=== PATIENT | male | born 1955 | race Caucasian/White ===

== ENCOUNTER → 2019-04-28 21:03 | Outpatient (ROUT) | payer MEDICARE, SELFPAY | PROVIDERS: Visit Provider Internal Medicine | DX: C22.4 Other sarcomas of liver (principal) ==

== ENCOUNTER 2019-05-01 09:43 | Emergency (ER) | payer MEDICARE, SELFPAY ==
[2019-05-01 09:48] VITALS: BP 92/72; PULSE 95; RESP 14; TEMP 36.5; O2SAT 99; BMI 31.5
--- NOTE | 2019-05-01 10:23 | PC.NURSE ---
Family arrives. to s/w them
[2019-05-01 10:29] LABS: Alanine Aminotransferase 39 IU/L (21-72); Albumin 3.1 g/dL (3.5-5.0); Albumin Globulin Ratio 0.6 (1.0-2.8); Alkaline Phosphatase 173 U/L (38-126); Aspartate Aminotransferase 52 IU/L (17-59); BUN Creatinine Ratio 21.3 (6-22); Bilirubin Total 2.1 mg/dL (0.2-1.3); Blood Urea Nitrogen 32 mg/dL (9-20); Calcium 9.5 mg/dL (8.4-10.2); Carbon Dioxide 20 mmol/L (22-32); Chloride 111 mmol/L (98-107); Estimated Glomerular Filt Rate 47.3 mL/min (>60); Globulin 4.8 g/dL (1.7-4.1); Glucose 176 mg/dL (80-110); HEMOLYSIS 20 (0-50); Potassium 4.7 mmol/L (3.4-5.1); Sodium 140 mmol/L (137-145); Total Protein 7.9 g/dL (6.3-8.2)
[2019-05-01 10:51] LABS: Basophils Absolute Auto 0 /uL (0-100); Basophils Percent Auto 0.3 % (0-2); Eosinophils Absolute Auto 100 /uL (0-450); Eosinophils Percent Auto 3.7 % (2-4); Hematocrit 40.1 % (41-53); Hemoglobin 13.6 g/dL (13.5-17.5); Lymphocytes Absolute Auto 1000 /uL (1100-4500); Lymphocytes Percent Auto 27.1 % (25-40); Mean Corpuscular Hemoglobin 35.1 PG (26-34); Mean Corpuscular Volume 103.2 fL (80-100); Monocytes Absolute Auto 400 /uL (0-900); Monocytes Percent Auto 10.9 % (3-14); Neutrophils Absolute Auto 2200 /uL (1500-7000); Platelet Count 48 X10^3/uL (150-400); Red Blood Cell Count 3.88 X10^6/uL (4.5-5.9); White Blood Cell Count 3.7 X10^3/uL (4.5-11.0)
--- NOTE | 2019-05-01 11:13 | ED.WEAKNESS ---
HPI - Weakness General Chief complaint: Weakness Stated complaint: Weakness Time Seen by Provider: 05/01/19 09:47 Source: family and EMS Mode of arrival: EMS History of Present Illness HPI Narrative: Patient is a 63-year-old male from for [facility] presenting with weakness. His history of hepatic encephalopathy, HIV, diabetes, coronary artery disease. Apparently he has been declining over the last 2 weeks. He actually was just released from [facility] on 04/27/2019. Family's goal is to get him home to hospice which is patient's goal as well. However today he is more weak than normal. He is alert and oriented x3. He understands his he has a poor prognosis. He is agreeable and wanting hospice. Related Data Previous Rx's Medication Instructions Recorded mupirocin 0 jah TOPICAL TID #22 gm 09/21/17 Allergies Allergy/AdvReac Type Severity Reaction Status Date / Time codeine [CODEINE] Allergy Unknown Verified 05/01/19 10:21 diclofenac [DICLOFENAC] Allergy Unknown Verified 05/01/19 10:21 tramadol [TRAMADOL] Allergy Unknown Verified 05/01/19 10:21 Review of Systems Review of Systems ROS Unobtainable: All systems reviewed & are unremarkable except as noted in HPI and below Constitutional Denies chills, Denies fever(s), Reports lethargy and Reports weakness Eyes Denies change in vision, Denies eye discharge, Denies irritation and Denies loss of vision ENT Ears, Nose, Mouth, and Throat: Denies change in voice, Denies dizziness, Denies neck pain and Denies sore throat Cardiovascular Denies chest pain, Denies syncope, Denies irregular heart rhythm, Denies lightheadedness, Denies palpitations, Denies dyspnea, Denies dyspnea on exertion and Denies orthopnea Respiratory Denies cough, Denies dyspnea, Denies dyspnea on exertion and Denies wheezing Gastrointestinal Gastrointestinal: Reports as per HPI Genitourinary Denies hematuria, Denies flank pain, Denies urinary incontinence and Denies urinary urgency Musculoskeletal Denies neck pain Integumentary/Breasts Denies pruritus, Denies erythema, Denies rash and Denies wounds Neurologic Denies dizziness, Denies syncope, Denies loss of vision and Reports weakness Endocrine Denies palpitations Allergic/Immunologic Denies wheezing [facility] Medical History Coronary artery disease (Acute) Diabetes (Acute) End stage liver disease (Acute) HIV (human immunodeficiency virus infection) (Acute) Hepatic encephalopathy (Acute) Hepatitis-C (Acute) Social History Smoking Status: Former smoker Social History Smoking Status: Former smoker Exam Initial Vital Signs Initial Vital Signs: Vital Signs Temperature 97.7 F 05/01/19 09:48 Pulse Rate 95 H 05/01/19 09:48 Respiratory Rate 14 05/01/19 09:48 Blood Pressure 92/72 05/01/19 09:48 Pulse Oximetry 99 05/01/19 09:48 GENERAL: Week elderly male alert oriented x3 and in [no acute] distress. HEENT: Head atraumatic,EOMI, pupils reactive, face symmetric, CARDIOVASCULAR: Regular rate and rhythm without murmurs, rubs or gallops. RESPIRATORY: Breath sounds equal bilaterally, no wheezes rales or rhonchi. ABDOMEN: Soft, no distension fluid wave positive no guarding no rebound EXTREMITIES: Normal range of motion, no clubbing or edema. Neurovascularly intact NEUROLOGICAL: Alert and oriented x4.Normal gait and speech. Cranial nerves II through XII grossly intact. SKIN: Warm, dry, no laceration, no petechiae, no rashes or lesions. Course Orders Ordered: ED Orders 05/01/19 10:10 Ammonia (NH3) Stat Comprehensive Metabolic Panel Stat 05/01/19 10:40 Complete Blood Count AUTO DIFF Stat Vital Signs - 8 hr 05/01/19 09:48 05/01/19 11:30 05/01/19 12:30 Temperature 97.7 F Pulse Rate 95 H 96 H 98 H Respiratory Rate 14 14 14 Blood Pressure 92/72 Blood Pressure [Left Arm] 117/74 116/62 Pulse Oximetry 99 98 97 05/01/19 14:00 05/01/19 15:09 Temperature 97.8 F Pulse Rate 99 H 99 H Respiratory Rate 14 20 Blood Pressure Blood Pressure [Left Arm] 121/66 95/68 Pulse Oximetry 97 99 MDM - Weakness Lab Data Result diagrams: 05/01/19 10:40 05/01/19 10:10 Lab Results 05/01/19 05/01/19 05/01/19 Range/Units 10:10 10:10 10:40 WBC 3.7 L (4.5-11.0) X10^3/uL RBC 3.88 L (4.5-5.9) X10^6/uL Hgb 13.6 (13.5-17.5) g/dL Hct 40.1 L (41-53) % MCV 103.2 H (80-100) fL MCH 35.1 H (26-34) PG MCHC 34.0 (30-36) % RDW 16.0 H (11.6-14.8) % Plt Count 48 L (150-400) X10^3/uL Neut % (Auto) 58.0 (50-75) % Lymph % (Auto) 27.1 (25-40) % Burke % (Auto) 10.9 (3-14) % Eos % (Auto) 3.7 (2-4) % Baso % (Auto) 0.3 (0-2) % Neut # (Auto) 2200 (6803-9165) /uL Lymph # (Auto) 1000 L (4961-7482) /uL Burke # (Auto) 400 (0-900) /uL Eos # (Auto) 100 (0-450) /uL Baso # (Auto) 0 (0-100) /uL Platelet Estimate Decreased on smear RBC Morphology Not Reportable Anisocytosis 1+ H Macrocytosis 1+ H Sodium 140 (137-145) mmol/L Potassium 4.7 (3.4-5.1) mmol/L Chloride 111 H (98-107) mmol/L Carbon Dioxide 20 L (22-32) mmol/L BUN 32 H (9-20) mg/dL Creatinine 1.50 H (0.66-1.25) mg/dL Estimated GFR 47.3 L (>60) mL/min BUN/Creatinine Ratio 21.3 (6-22) Glucose 176 H (80-110) mg/dL Calcium 9.5 (8.4-10.2) mg/dL Total Bilirubin 2.1 H (0.2-1.3) mg/dL AST 52 (17-59) IU/L ALT 39 (21-72) IU/L Alkaline Phosphatase 173 H (38-126) U/L Ammonia 22.0 (9-30) umol/L Total Protein 7.9 (6.3-8.2) g/dL Albumin 3.1 L (3.5-5.0) g/dL Globulin 4.8 H (1.7-4.1) g/dL Albumin/Globulin Ratio 0.6 L (1.0-2.8) MDM Narrative Medical decision making narrative: Long discussion with family. Social work involved. Hospice at bedside. Patient will get hospice on Friday which is in 2 days. Family agrees to go back to [facility], and they agree to take him. Discharge Plan Departure Patient Disposition: SNF Clinical Impression: End stage liver disease Discharge Date/Time: 05/01/19 15:11 Interventions: ED Discharge Assessment Last Done: 05/01/19 15:10 Activity Restrictions/Additional Instructions: *You have been diagnosed with end-stage liver disease *What to do: Hospice has been arranged for you on Friday. *Continue to take medications as directed *Follow up with your primary care provider in 2-3 days *Return to ER if you should have any new, worsening or concerning symptoms
[2019-05-01 11:17] LABS: Add Manual Diff / Slide Review SLIDE REVIEW
[2019-05-01 11:18] LABS: Anisocytosis 1+; Macrocytosis 1+; Platelet Estimate Decreased on smear
[2019-05-01 11:30] VITALS: BP 117/74; PULSE 96; RESP 14; O2SAT 98
[2019-05-01 12:30] VITALS: BP 116/62; PULSE 98; RESP 14; O2SAT 97
--- NOTE | 2019-05-01 13:35 | CM.DANOTE ---
Patient is a 63 year old male who was admitted to the ER today 05/01/19 for weakness/confusion. Pt has MCR for insurance and his PCP is Dr. Clark Garcia. EMR was reviewed. Per ED MD, pt was admitted from [facility] and is requesting Comfort Care/Hospice and has updated POLST form with Comfort only measures. Pt does not have any medical needs that meet criteria for being admitted to [facility] Acute Care and MD requesting SW support with determining d/c plan for pt from the ED. SW met bedside with pt and his mother along with Dr. Baeza and pt confirms that his preference is to go home with Hospice care if possible. SW called [facility] and made new referral and requested Hospice Info Visit for today if possible to reduce pt's risk of social admit. Hospice SW available to do bedside ED info visit today around 1300 and pt's family should be bedside at that time. RAMIN called Aide at [facility] and confirmed that the pt had been admitted to their facility for SNF rehab from [facility] on 04/27/19 and has steadily declined in his ability to participate and [facility] MD had a long talk with pt and family towards decision of comfort care rather than rehab. Per Hospice SW, completed bedside Info Visit and pt and family signed Consents and DME can be delivered to pt's house on Friday with start date likely shortly after. RAMIN called [facility] Aide and updated and confirmed that they can accept pt back today under his Medicare Comfort benefit while Hospice at home being set up. RAMIN updated MD and RN and met bedside with pt and family and provided additional [facility] brochure and confirmed they are agreeable with plan of return to [facility] under Comfort Measures while waiting for DME to be delivered on Friday05/03/19 to pt's home. Plan: Patient to d/c back to [facility] under comfort measure while [facility] being set up for early this next week. NACHO Salomon
[2019-05-01 14:00] VITALS: BP 121/66; PULSE 99; RESP 14; O2SAT 97
[2019-05-01 15:09] VITALS: BP 95/68; PULSE 99; RESP 20; TEMP 36.6; O2SAT 99
== END 2019-05-01 15:11 ==
PROVIDERS: Emergency Provider Emergency Medicine
DX: K72.90 Hepatic failure, unspecified without coma (principal)
CPT/HCPCS: 36415; 36591; 80053; 82140; 85025; 99283

== ENCOUNTER 2019-12-24 15:01 | Inpatient (IN) | payer MEDICARE, MEDICAID, SELFPAY ==
[2019-12-24] VITALS (8 sets, daily range): BP systolic 89–125; BP diastolic 56–61; PULSE 111–132; RESP 18–25; TEMP 37.8–39.3; O2SAT 95–96; BMI 28.1; BMI 23.6
[2019-12-24] MEDS: SODIUM CHLORIDE 0.9% 1,000 ML 125 ML IV (15:28)
[2019-12-24 15:35] LABS: Hematocrit 39.2 % (41-53); Hemoglobin 13.7 g/dL (13.5-17.5); Mean Corpuscular HGB Conc 34.8 % (30-36); Mean Corpuscular Hemoglobin 34.5 PG (26-34); Platelet Count 67 X10^3/uL (150-400); Red Blood Cell Count 3.97 X10^6/uL (4.5-5.9); Red Cell Distribution Width 15.7 % (11.6-14.8)
--- NOTE | 2019-12-24 15:36 | ED.SEPSIS ---
HPI - Sepsis General Chief Complaint: Weakness Mode of arrival: EMS Source: patient and family Limitations: no limitations Evaluation Sepsis Screen: Possible Sepsis Risk Sepsis Infection Criteria Present: Suspected New Infection Narrative: Patient is a 64-year-old male. Arrived by EMS. Minimal history initially able to be obtained from the patient. Upon review of his medical record shows he was seen here at the end of last year. Reports that he has liver cancer. There was discussion at that time and that note that the patient was on hospice. Also notes the patient had HIV. Upon arrival patient states that he was feeling fine until 4-5 hours ago when he suddenly started to not feel well. He denies any pain. He stated that he was on hospice until about 1/2 ago. He also stated that he was on a transplant list. He knew where he was however did not know the year. Did not know his primary doctor. Did not know who his liver doctor was. Review of Systems Review of Systems Narrative: Somewhat limited given the patient's medical condition Constitutional Constitutional: Reports fatigue and Reports fever(s) Cardiovascular Cardiovascular: Denies chest pain and Denies dyspnea Respiratory Respiratory: Denies dyspnea Gastrointestinal Gastrointestinal: Denies abdominal pain and Denies vomiting Integumentary/Breasts Skin/Breast: Denies rash Neurologic Comments: Altered mental status Endocrine Endocrine: Reports fatigue Hematologic/Lymphatic Hematologic/Lymphatic: Denies easy bleeding and Denies easy bruising Patient History Medical History Coronary artery disease (Acute) Diabetes (Acute) End stage liver disease (Acute) Hepatic encephalopathy (Acute) Hepatitis-C (Acute) HIV (human immunodeficiency virus infection) (Acute) Social History Smoking Status: Former smoker Smoking Status: Former smoker alcohol intake frequency: holidays/special occasions only Substance Use Type: does not use Exam Initial Vital Signs Initial Vital Signs: Vital Signs Temperature 102.7 F H 12/24/19 15:13 Pulse Rate 132 H 12/24/19 15:13 Respiratory Rate 24 12/24/19 15:13 Blood Pressure 125/61 12/24/19 15:13 Pulse Oximetry 96 12/24/19 15:13 Const General: well groomed and ill appearing Limitations: altered mental status HENMT Head: normal to inspection and normocephalic Eyes Sclera: scleral abnormality bilaterally (Icterus) Resp Effort & Inspection: tachypneic Auscultation: clear to auscultation bilaterally Cardio Rate: tachycardic Rhythm: regular rhythm Pulses: radial pulses present GI Inspection: non-distended Palpation: soft, No firm and No tender Skin General: jaundice Neuro General: moves all extremities Cognition: abnormal cognition Extrem General: capillary refill normal Psych Appearance: grossly normal Scores GCS Maggy coma scale eye opening: To sound Maggy coma scale verbal response: Confused Grambling coma scale motor response: Obey commands Maggy coma scale total score: 13 Course Orders Ordered: ED Orders 12/24/19 15:04 Urinalysis and Microscopic Stat 12/24/19 15:05 Urine Culture Stat 12/24/19 15:19 Acetaminophen Stat Ammonia (NH3) Stat Basic Metabolic Panel Stat Complete Blood Count AUTO DIFF Stat Ethanol (ETOH) Stat Hepatic (Liver) Panel Stat Lactate (Lactic Acid) Stat Lipase Stat Partial Thromboplastin Time Stat Pathologist Review (for CBC) Stat Procalcitonin Stat Prothrombin Time INR Stat 12/24/19 15:28 Blood Culture Stat 12/24/19 15:41 XR chest 1V Stat 12/24/19 15:44 Consult to [facility] [place] Stat 12/24/19 16:34 Influenza A & B (PCR) Stat Sodium Chloride (Normal Saline 0.9%) 2,517.45 mls @ 839.15 mls/hr 30 ml/kg infuse over 3 hr (2517.45 ml) IV NOW ONE Stop: 12/24/19 18:36 Last Admin: 12/24/19 15:53 Dose: 839.15 mls/hr Documented by: YADI Vancomycin HCl/Dextrose (Vancomycin) 2,000 mg in 400 mls @ 200 mls/hr IV NOW ONE Stop: 12/24/19 17:42 Last Admin: 12/24/19 15:49 Dose: 200 mls/hr Documented by: YADI Levofloxacin (Levaquin) 750 mg in 150 mls @ 100 mls/hr IV NOW ONE Stop: 12/24/19 17:12 Last Admin: 12/24/19 15:58 Dose: 100 mls/hr Documented by: YADI Discontinued Medications Sodium Chloride (Normal Saline 0.9%) 1,000 mls @ 125 mls/hr IV CONT JAY Last Infusion: 12/24/19 16:09 Dose: 0 mls/hr Documented by: Infusion: 12/24/19 15:53 Dose: 840 mls/hr Documented by: Admin: 12/24/19 15:28 Dose: 125 mls/hr Documented by: YADI Cefepime HCl 2 gm/ Sodium (Chloride) 100 mls @ 200 mls/hr IV NOW ONE Stop: 12/24/19 15:44 Last Admin: 12/24/19 16:09 Dose: 200 mls/hr Documented by: YADI Vital Signs Vital signs: Vital Signs - 8 hr 12/24/19 15:13 Temperature 102.7 F H Pulse Rate 132 H Respiratory Rate 24 Blood Pressure 125/61 Pulse Oximetry 96 MDM - Sepsis Lab Data Attestation: I reviewed the patient's lab results. Result diagrams: 12/24/19 15:19 12/24/19 15:19 Labs: Lab Results 12/24/19 12/24/19 12/24/19 Range/Units 15:19 15:19 15:19 WBC 1.8 L* (4.5-11.0) X10^3/uL RBC 3.97 L (4.5-5.9) X10^6/uL Hgb 13.7 (13.5-17.5) g/dL Hct 39.2 L (41-53) % MCV 99.0 (80-100) fL MCH 34.5 H (26-34) PG MCHC 34.8 (30-36) % RDW 15.7 H (11.6-14.8) % Plt Count 67 L (150-400) X10^3/uL Neut % (Auto) Not Reportable Lymph % (Auto) Not Reportable Perkins % (Auto) Not Reportable Eos % (Auto) Not Reportable Baso % (Auto) Not Reportable Lymph # (Auto) Not Reportable Perkins # (Auto) Not Reportable Baso # (Auto) Not Reportable Total Counted 50 Seg Neutrophils % 78.0 H (38-70) % Band Neutrophils % 10.0 H (3-7) % Lymphocytes % (Manual) 8.0 L (25-45) % Monocytes % (Manual) 4.0 (2-11) % Neutrophils # (Manual) 1584 L (8225-1480) /uL Platelet Estimate Decreased on smear RBC Morphology See below Macrocytosis 1+ H Tear Drop Cells 1+ H PT 17.1 H (10.1-12.7) SECONDS INR 1.5 H (0.9-1.3) APTT 32 (26.4-36.2) SECONDS Sodium (137-145) mmol/L Potassium (3.4-5.1) mmol/L Chloride (98-107) mmol/L Carbon Dioxide (22-32) mmol/L BUN (9-20) mg/dL Creatinine (0.66-1.25) mg/dL Estimated GFR (>60) mL/min BUN/Creatinine Ratio (6-22) Glucose (80-110) mg/dL Lactate (0.7-2.1) mmol/L Calcium (8.4-10.2) mg/dL Total Bilirubin (0.2-1.3) mg/dL Conjugated Bilirubin (0.0-0.3) md/dL Unconjugated Bilirubin (0.0-1.1) mg/dL AST (17-59) IU/L ALT (<50) IU/L Alkaline Phosphatase (38-126) U/L Ammonia (9-30) umol/L Total Protein (6.3-8.2) g/dL Albumin (3.5-5.0) g/dL Globulin (1.7-4.1) g/dL Albumin/Globulin Ratio (1.0-2.8) Lipase (23-300) U/L Procalcitonin 0.30 (<0.5) ng/mL Acetaminophen (10-30) ug/mL Ethyl Alcohol ( - 10) mg/dL 12/24/19 12/24/19 12/24/19 Range/Units 15:19 15:19 15:19 WBC (4.5-11.0) X10^3/uL RBC (4.5-5.9) X10^6/uL Hgb (13.5-17.5) g/dL Hct (41-53) % MCV (80-100) fL MCH (26-34) PG MCHC (30-36) % RDW (11.6-14.8) % Plt Count (150-400) X10^3/uL Neut % (Auto) Lymph % (Auto) Perkins % (Auto) Eos % (Auto) Baso % (Auto) Lymph # (Auto) Perkins # (Auto) Baso # (Auto) Total Counted Seg Neutrophils % (38-70) % Band Neutrophils % (3-7) % Lymphocytes % (Manual) (25-45) % Monocytes % (Manual) (2-11) % Neutrophils # (Manual) (5996-1260) /uL Platelet Estimate RBC Morphology Macrocytosis Tear Drop Cells PT (10.1-12.7) SECONDS INR (0.9-1.3) APTT (26.4-36.2) SECONDS Sodium 132 L (137-145) mmol/L Potassium 4.8 (3.4-5.1) mmol/L Chloride 98 (98-107) mmol/L Carbon Dioxide 21 L (22-32) mmol/L BUN 35 H (9-20) mg/dL Creatinine 1.40 H (0.66-1.25) mg/dL Estimated GFR 51.0 L (>60) mL/min BUN/Creatinine Ratio 25.0 H (6-22) Glucose 141 H (80-110) mg/dL Lactate 5.6 H* (0.7-2.1) mmol/L Calcium 9.6 (8.4-10.2) mg/dL Total Bilirubin 4.1 H (0.2-1.3) mg/dL Conjugated Bilirubin 0.2 (0.0-0.3) md/dL Unconjugated Bilirubin 2.8 H (0.0-1.1) mg/dL AST 150 H (17-59) IU/L ALT 61 H (<50) IU/L Alkaline Phosphatase 276 H (38-126) U/L Ammonia 19 (9-30) umol/L Total Protein 9.4 H (6.3-8.2) g/dL Albumin 3.2 L (3.5-5.0) g/dL Globulin 6.2 H (1.7-4.1) g/dL Albumin/Globulin Ratio 0.5 L (1.0-2.8) Lipase 337 H (23-300) U/L Procalcitonin (<0.5) ng/mL Acetaminophen < 10 L (10-30) ug/mL Ethyl Alcohol < 10 ( - 10) mg/dL Imaging Data Chest x-ray: Radiologist's Impression: [address] [address] XRay Report Signed Patient: Farheen Sebastian#: [id number] : 5Acct:[id number] Age/Sex: 64 / MDate of Service: 12/24/19 Loc: ED Accession Number: [id number] Procedure: XR chest 1V Ordering Provider: Cody Siddiqui D.O. PROCEDURE: XR CHEST 1V INDICATIONS: Sepsis workup TECHNIQUE: One view of the chest was acquired. COMPARISON: [facility], , CHEST 1VW (PORTABLE), 09/06/2014, 6:04. FINDINGS: Surgical changes and devices: None. Lungs and pleura: Minimal appearance of increased vascularity is noted. No pleural effusions or pneumothorax. Mediastinum: Mediastinal contours appear normal. Heart size is normal. Bones and chest wall: No suspicious bony lesions. Overlying soft tissues appear unremarkable. IMPRESSION: Minimal increased vascularity suggestive of edema. Dictated by: Lucrecia Duff M.D. on 12/24/2019 at 16:10 Approved by: Lucrecia Duff M.D. on 12/24/2019 at 16:13 ECG Data Attestation: I personally reviewed and interpreted this ECG as follows: Prior ECG tracings: not available for review Interpretation: Sinus tachycardia Ventricular rate 128 QRS 140 milliseconds Normal axis No ST T wave changes MDM Narrative Medical decision making narrative: Initially arrived altered. Had minimal information other than a prior note from June of last year. Somewhat confusing as to whether not the patient was actually on hospice or not. Social work was involved. They were able to talk with the patient's mother and sister who stated that several weeks ago the patient was taken off hospice because he was ?doing so well ?a still unsure as to whether not he is actually on a liver transplant list. Patient arrived febrile, tachycardic, tachypneic, has an increase lactate, has a low white blood cell count. Unsure exactly the source of the sepsis however was given broad-spectrum antibiotics. After fluids patient did seem to improve somewhat mental status martinez. He then became alert and oriented. He was able to confirm that he was having no symptoms except that he just did not feel very well. He did confirm that he was a DNR however was okay with antibiotics. Patient was never hypotensive. Blood cultures obtained. Urine culture obtained. Chest x-ray shows no signs of pneumonia. Did discuss the case with Dr. Duran who will accept the patient. I did discuss this with the patient who expressed understanding and agreement. Discharge Plan Departure Patient Disposition: Admitted As Inpatient Clinical Impression: End stage liver disease Sepsis Qualifiers: Sepsis type: sepsis due to unspecified organism Sepsis acute organ dysfunction status: unspecified Qualified Code(s): A41.9 - Sepsis, unspecified organism Altered mental status Qualifiers: Altered mental status type: unspecified Qualified Code(s): R41.82 - Altered mental status, unspecified HIV (human immunodeficiency virus infection) Qualifiers: HIV symptom status: unspecified Qualified Code(s): B20 - Human immunodeficiency virus [HIV] disease
[2019-12-24 15:37] LABS: Add Manual Diff / Slide Review YES; White Blood Cell Count 1.8 X10^3/uL (4.5-11.0)
[2019-12-24 15:38] LABS: INR 1.5 (0.9-1.3); Prothrombin Time 17.1 SECONDS (10.1-12.7)
[2019-12-24 15:41] LABS: PTT Partial Thromboplastin Tim 32 SECONDS (26.4-36.2)
--- NOTE | 2019-12-24 15:41 | DI.RAD.S_ITS ---
PROCEDURE: XR CHEST 1V INDICATIONS: Sepsis workup TECHNIQUE: One view of the chest was acquired. COMPARISON: [facility], , CHEST 1VW (PORTABLE), 09/06/2014, 6:04. FINDINGS: Surgical changes and devices: None. Lungs and pleura: Minimal appearance of increased vascularity is noted. No pleural effusions or pneumothorax. Mediastinum: Mediastinal contours appear normal. Heart size is normal. Bones and chest wall: No suspicious bony lesions. Overlying soft tissues appear unremarkable. IMPRESSION: Minimal increased vascularity suggestive of edema. Dictated by: Lucrecia Duff M.D. on 12/24/2019 at 16:10 Approved by: Lucrecia Duff M.D. on 12/24/2019 at 16:13
[2019-12-24 15:44] LABS: Ammonia (NH3) 19 umol/L (9-30)
[2019-12-24 15:47] LABS: Acetaminophen < 10 ug/mL (10-30); Alanine Aminotransferase 61 IU/L (<50); Albumin 3.2 g/dL (3.5-5.0); Albumin Globulin Ratio 0.5 (1.0-2.8); Alkaline Phosphatase 276 U/L (38-126); Aspartate Aminotransferase 150 IU/L (17-59); Bilirubin Conjugated 0.2 md/dL (0.0-0.3); Bilirubin Total 4.1 mg/dL (0.2-1.3); Bilirubin Unconjugated 2.8 mg/dL (0.0-1.1); Blood Urea Nitrogen 35 mg/dL (9-20); Calcium 9.6 mg/dL (8.4-10.2); Carbon Dioxide 21 mmol/L (22-32); Chloride 98 mmol/L (98-107); Ethanol (ETOH) < 10 mg/dL; Globulin 6.2 g/dL (1.7-4.1); Glucose 141 mg/dL (80-110); HEMOLYSIS < 15 (0-50); Lipase 337 U/L (23-300); Potassium 4.8 mmol/L (3.4-5.1); Sodium 132 mmol/L (137-145); Total Protein 9.4 g/dL (6.3-8.2)
[2019-12-24] MEDS: VANCOMYCIN 2,000 MG/400 ML PIGGYBACK 200 MG IV (15:49)
[2019-12-24 15:51] LABS: Lactate (Lactic Acid) 5.6 mmol/L (0.7-2.1)
[2019-12-24] MEDS: SODIUM CHLORIDE 0.9% 2,517.45 ML 839.15 ML IV (15:53)
[2019-12-24] MEDS: levoFLOXacin 750 MG/150 ML PIGGYBACK 100 MG IV (15:58)
[2019-12-24 16:04] LABS: Neutrophils Absolute Manual 1584 /uL (3000-5900); Total Cells Counted 50
[2019-12-24 16:06] LABS: Macrocytosis 1+; Platelet Estimate Decreased on smear; Tear Drop Cells 1+
[2019-12-24] MEDS: CEFEPIME 2 GM in SODIUM CHLORIDE 0.9% 100 ML 200 ML IV (16:09)
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
[2019-12-24 16:58] LABS: Bacteria Urine None Seen; RBC Urine None Seen (0-5/HPF); WBC Urine None Seen (0-5/HPF)
[2019-12-24 16:59] LABS: Appearance Urine UA CLEAR; Bilirubin Urine UA NEGATIVE (NEGATIVE); Color Urine UA YELLOW; Glucose Urine UA NEGATIVE (Negative); Ketones Urine UA NEGATIVE (NEGATIVE); Leukocyte Esterase Urine UA NEGATIVE (NEGATIVE); Nitrite Urine UA NEGATIVE (Negative); Occult Blood Urine UA NEGATIVE (Negative); Protein Urine UA NEGATIVE (Negative); Specific Gravity Urine UA 1.015 (1.000-1.035); Urobilinogen Urine UA 0.2 E.U./dL (0.2)
--- NOTE | 2019-12-24 17:01 | PC.NURSE ---
Assumed care of pt. report from JUANCHO Lucas. pt resting in bed. AAOx3, states today around 1530 was at home--lives alone, started with feverish chills, nausea and some vomiting. Lungs clear, and SNT, last BM today loose, denies blood in stool, HR 118 ST, 2+ pulses, adequate cap refill, voiding in urinal and sample sent. Pt receiving 2nd liter NS at this time. goal is 2.5L NS. Cefepime infused. pt receiving Levaquin and Vanco at this time. PIV access x 2. Per pt he feels much more alert than on arrival. pt with h/o liver CA and sclera jaundiced. states he was on hospice months ago but took himself off and is not currently receiving CA treatment
[2019-12-24 17:07] LABS: Urine Comments Microscopic Normal
[2019-12-24 17:15] LABS: Influenza A - CEPHEID Flu A NEGATIVE (NEGATIVE); Influenza B - CEPHEID Flu B NEGATIVE (NEGATIVE)
[2019-12-24 17:25] LABS: Reflexed Lactate in 2 Hours Y
--- NOTE | 2019-12-24 18:30 | PC.NURSE ---
report given to Ant DAWKINS.
[2019-12-24] MEDS: LACTULOSE 20 GM/30 ML SOLUTION 30 GM PO (21:35)
--- NOTE | 2019-12-24 22:33 | PM.HP.1 ---
History of Present Illness History of Present Illness Date Patient Seen: 12/24/19 Time Patient Seen: 22:33 Chief complaint: late state liver CA, chills, tremers, weak Narrative: Patient is a 64-year-old male with complex past medical history. Patient is unable to give a clear account of his medical history and current medical record also lacks details. Patient reports PMH of CAD, DM 2T (not on insulin, off oral antiglcyemics x6 months), hepatitis C, hepatic encephalopathy, ESLD / cirrhosis, HIV Patient reports developing sudden onset of rigors. Symptom onset was sudden, hours prior to ED presentation. Associated symptoms include encephalopathy, generalized weakness, nausea and vomiting (x2 episodes). Patient denies recent travel or exposure to ill contacts. He is immunocompromised. Denies cough and symptoms of upper respiratory illness. Denies headache, chest pain, palpitations, dizziness, lightheadedness, abdominal pain, dysuria, or new rash. Prior to ED presentation patient has been feeling well. He was on hospice, but was taken of due to stable overall health status. At home patient is on lactulose, furosemide, and spironolactone. Patient has been following with multiple specialists in [facility] for his underlying illness; however, states that in the past several months he has been establishing himself with different providers and all of his records are in the process of being transferred to [facility]. Patient History Family & Social History Social History: household members family Prior Living Arrangements House Safety & Behavioral: Feels Safe in Current Yes Environment Been Physically Hurt or No Threatened By a Person Suicidal Ideation Description None Suicide Plan Description No Plan Tobacco & Substance use: Smoking Status Former smoker alcohol intake frequency holiday/special occasion Substance Use Type does not use Meds Home Medications and Allergies Home Medications Medication Instructions Recorded Confirmed Type fluconazole 100 mg PO DAILY 12/24/19 12/24/19 History furosemide 40 mg PO DAILY 12/24/19 12/24/19 History lactulose 45 ml PO TID 12/24/19 12/24/19 History spironolactone 100 mg PO DAILY 12/24/19 12/24/19 History Allergies Allergy/AdvReac Type Severity Reaction Status Date / Time codeine [CODEINE] Allergy Unknown Verified 12/24/19 15:16 diclofenac [DICLOFENAC] Allergy Unknown Verified 12/24/19 15:16 tramadol [TRAMADOL] Allergy Unknown Verified 12/24/19 15:16 Review of Systems Review of Systems ROS: Yes All systems reviewed with the patient and are negative except as otherwise documented Exam Vital Signs (past 8 hours): - 12/24/19 15:13 12/24/19 16:53 12/24/19 17:10 Temperature 102.7 F H 100.3 F H Pulse Rate 132 H 120 H 118 H Respiratory Rate 24 24 25 H Blood Pressure 125/61 Blood Pressure [Left Arm] 125/61 102/58 L Pulse Oximetry 96 95 95 12/24/19 18:29 12/24/19 18:45 12/24/19 18:53 Temperature 100.0 F H Pulse Rate 111 H 112 H Respiratory Rate 24 18 Blood Pressure 93/56 L Blood Pressure [Left Arm] 89/57 L Pulse Oximetry 95 96 96 12/24/19 19:20 Temperature Pulse Rate Respiratory Rate Blood Pressure 98/57 L Blood Pressure [Left Arm] Pulse Oximetry Oxygen Delivery Method Room Air Narrative Exam Narrative: Constitutional: NAD Neurologic: AOx3, no focal neurological deficits Head: NC, AT Eyes: PERRL, EOMI, mild scleral icterus Ears: external ears normal, no otorrhea Nose: external nose normal, no rhinorrhea or epistaxis Throat: dry MM, oropharynx w/o exudate Neck: no masses, lymphadenopathy, or JVD Chest / Respiratory: Equal chest rise, CTAB, on room air Heart / CV: S1S2, + murmur Abdomen / GI: Moderately distended, nontender, no guarding or rebound tenderness, + NS : no suprapubic tenderness, no CVA Peripheral / Vascular: warm to touch, DP and PT pulses palpable, no edema Musc: full ROM of upper and lower extremities, adequate muscle tone and bulk Skin: no ecchymosis or suspicious lesions, scabs on forearms noted Objective Labs Result Diagrams: 12/25/19 02:45 12/25/19 02:45 Labs: Laboratory Results - last 24 hr 12/24/19 12/24/19 12/24/19 15:19 15:19 15:19 WBC 1.8 L* RBC 3.97 L Hgb 13.7 Hct 39.2 L MCV 99.0 MCH 34.5 H MCHC 34.8 RDW 15.7 H Plt Count 67 L Neut % (Auto) Not Reportable Lymph % (Auto) Not Reportable [place] % (Auto) Not Reportable Eos % (Auto) Not Reportable Baso % (Auto) Not Reportable Lymph # (Auto) Not Reportable [place] # (Auto) Not Reportable Baso # (Auto) Not Reportable Total Counted 50 Seg Neutrophils % 78.0 H Band Neutrophils % 10.0 H Lymphocytes % (Manual) 8.0 L Monocytes % (Manual) 4.0 Neutrophils # (Manual) 1584 L Platelet Estimate Decreased on smear RBC Morphology See below Macrocytosis 1+ H Tear Drop Cells 1+ H PT 17.1 H INR 1.5 H APTT 32 Sodium Potassium Chloride Carbon Dioxide BUN Creatinine Estimated GFR BUN/Creatinine Ratio Glucose Lactate Calcium Total Bilirubin Conjugated Bilirubin Unconjugated Bilirubin AST ALT Alkaline Phosphatase Ammonia Total Protein Albumin Globulin Albumin/Globulin Ratio Lipase Procalcitonin 0.30 Urine Color Urine Appearance Urine pH Ur Specific [place] Urine Protein Urine Glucose (UA) Urine Ketones Urine Occult Blood Urine Nitrate Urine Bilirubin Urine Urobilinogen Ur Leukocyte Esterase Urine RBC Urine WBC Urine Bacteria Ur Culture Indicated? Micro UA Comment Acetaminophen Ethyl Alcohol Influenza A (RT-PCR) Influenza B (RT-PCR) 12/24/19 12/24/19 12/24/19 15:19 15:19 15:19 WBC RBC Hgb Hct MCV MCH MCHC RDW Plt Count Neut % (Auto) Lymph % (Auto) [place] % (Auto) Eos % (Auto) Baso % (Auto) Lymph # (Auto) [place] # (Auto) Baso # (Auto) Total Counted Seg Neutrophils % Band Neutrophils % Lymphocytes % (Manual) Monocytes % (Manual) Neutrophils # (Manual) Platelet Estimate RBC Morphology Macrocytosis Tear Drop Cells PT INR APTT Sodium 132 L Potassium 4.8 Chloride 98 Carbon Dioxide 21 L BUN 35 H Creatinine 1.40 H Estimated GFR 51.0 L BUN/Creatinine Ratio 25.0 H Glucose 141 H Lactate 5.6 H* Calcium 9.6 Total Bilirubin 4.1 H Conjugated Bilirubin 0.2 Unconjugated Bilirubin 2.8 H AST 150 H ALT 61 H Alkaline Phosphatase 276 H Ammonia 19 Total Protein 9.4 H Albumin 3.2 L Globulin 6.2 H Albumin/Globulin Ratio 0.5 L Lipase 337 H Procalcitonin Urine Color Urine Appearance Urine pH Ur Specific [place] Urine Protein Urine Glucose (UA) Urine Ketones Urine Occult Blood Urine Nitrate Urine Bilirubin Urine Urobilinogen Ur Leukocyte Esterase Urine RBC Urine WBC Urine Bacteria Ur Culture Indicated? Micro UA Comment Acetaminophen < 10 L Ethyl Alcohol < 10 Influenza A (RT-PCR) Influenza B (RT-PCR) 12/24/19 12/24/19 12/24/19 16:31 16:34 18:16 WBC RBC Hgb Hct MCV MCH MCHC RDW Plt Count Neut % (Auto) Lymph % (Auto) [place] % (Auto) Eos % (Auto) Baso % (Auto) Lymph # (Auto) [place] # (Auto) Baso # (Auto) Total Counted Seg Neutrophils % Band Neutrophils % Lymphocytes % (Manual) Monocytes % (Manual) Neutrophils # (Manual) Platelet Estimate RBC Morphology Macrocytosis Tear Drop Cells PT INR APTT Sodium Potassium Chloride Carbon Dioxide BUN Creatinine Estimated GFR BUN/Creatinine Ratio Glucose Lactate 3.0 H Calcium Total Bilirubin Conjugated Bilirubin Unconjugated Bilirubin AST ALT Alkaline Phosphatase Ammonia Total Protein Albumin Globulin Albumin/Globulin Ratio Lipase Procalcitonin Urine Color Yellow Urine Appearance Clear Urine pH 5.0 Ur Specific [place] 1.015 Urine Protein Negative Urine Glucose (UA) Negative Urine Ketones Negative Urine Occult Blood Negative Urine Nitrate Negative Urine Bilirubin Negative Urine Urobilinogen 0.2 Ur Leukocyte Esterase Negative Urine RBC None seen Urine WBC None seen Urine Bacteria None seen Ur Culture Indicated? Culture not indicate Micro UA Comment Microscopic normal Acetaminophen Ethyl Alcohol Influenza A (RT-PCR) Flu a negative Influenza B (RT-PCR) Flu b negative Assessment & Plan Assessment & Plan narrative: Patient is being admitted under observation status out of concern for sepsis. Sepsis with acute organ dysfunction (encephalopathy), without septic shock, present on admission active - altered mental status, tachycardia, tachypnea, and elevated lactate; not hypotensive - if infection is present, source is not entirely clear SBP?? - blood cx pending - cxr not indicative of an infection - ua negative - flu a/b negative - check respiratory viral panel (negative) - PCT 0.3, repeat in am - in ED treated w/ vancomycin, levofloxacin, and cefepime continue levofloxacin - elevated lactate... infection vs hypovolemia / dehydration... continue trending lactate until normal Pancytopenia, chronic condition, present on admission, active - chronic in the setting of end-stage liver disease - more pronounced leukopenia, will monitor closely Acute metabolic encephalopathy, present on admission, active / resolved - resolved after IV hydration - ammonia level 18 - continue lactulose for prevention of hepatic encephalopathy, goal of 3 BMs daily CKD III, chronic condition, present on admission, active - Cr 1.4, appears to be at baseline, continue trending ESLD / Cirrhosis, chronic condition, present on admission, active - MELD Score of 23 - w/complications of pancytopenia, hepatic encephalopathy - continue lactulose, furosemide, and spironolactone - obtain health records from [facility] HIV, chronic condition, present on admission, active - not on any anti-retroviral therapy DNRHunter Bynum has a POLST form. States his daughter the designated surrogate decision maker. Home medications reviewed and reconciled accordingly VTE prophylaxis w/ SCDs only (no heparin, lovenox d/t thrombocytopenia) Quality VTE Deep Vein Thrombosis/Pulmonary Embolism Present on Admission: No
[2019-12-25] VITALS (10 sets, daily range): BP systolic 84–104; BP diastolic 50–67; PULSE 88–101; RESP 16–20; TEMP 36.3–37.1; O2SAT 95–99
[2019-12-25 00:49] LABS: Lactate (Lactic Acid) 2.6 mmol/L (0.7-2.1)
[2019-12-25 00:50] LABS: Alanine Aminotransferase 46 IU/L (<50); Albumin 2.4 g/dL (3.5-5.0); Albumin Globulin Ratio 0.5 (1.0-2.8); Alkaline Phosphatase 160 U/L (38-126); Aspartate Aminotransferase 109 IU/L (17-59); BUN Creatinine Ratio 25.7 (6-22); Bilirubin Total 3.1 mg/dL (0.2-1.3); Blood Urea Nitrogen 36 mg/dL (9-20); Calcium 8.5 mg/dL (8.4-10.2); Carbon Dioxide 22 mmol/L (22-32); Chloride 104 mmol/L (98-107); Glucose 188 mg/dL (80-110); HEMOLYSIS < 15 (0-50); Potassium 4.6 mmol/L (3.4-5.1); Sodium 133 mmol/L (137-145); Total Protein 7.4 g/dL (6.3-8.2)
[2019-12-25 01:07] LABS: Adenovirus Not Detected (Not Detect); Bordetella pertussis Not Detected (Not Detect); Chlamydophila pneumoniae Not Detected (Not Detect); Coronavirus 229E Not Detected (Not Detect); Coronavirus HKU1 Not Detected (Not Detect); Coronavirus NL 63 Not Detected (Not Detect); Coronavirus OC43 Not Detected (Not Detect); Human Metapneumovirus Not Detected (Not Detect); Human Rhinovirus/Enterovirus Not Detected (Not Detect); Influenza A Not Detected (Not Detect); Influenza B Not Detected (Not Detect); Mycoplasma pneumoniae Not Detected (Not Detect); Parainfluenza Virus 1 Not Detected (Not Detect); Parainfluenza Virus 2 Not Detected (Not Detect); Parainfluenza Virus 3 Not Detected (Not Detect); Parainfluenza Virus 4 Not Detected (Not Detect); Respiratory Syncytial Virus Not Detected (Not Detect)
[2019-12-25 02:35] LABS: Reflexed Lactate in 2 Hours Y
[2019-12-25 03:02] LABS: Lactate 2HR (Lactic Acid Rflx) 2.8 mmol/L (0.7-2.1)
[2019-12-25 03:19] LABS: Hematocrit 31.7 % (41-53); Mean Corpuscular HGB Conc 34.7 % (30-36); Mean Corpuscular Hemoglobin 34.5 PG (26-34); Mean Corpuscular Volume 99.3 fL (80-100); Platelet Count 43 X10^3/uL (150-400); Red Blood Cell Count 3.19 X10^6/uL (4.5-5.9); Red Cell Distribution Width 16.1 % (11.6-14.8); White Blood Cell Count 3.6 X10^3/uL (4.5-11.0)
[2019-12-25 03:22] LABS: Add Manual Diff / Slide Review YES
[2019-12-25 03:35] LABS: BUN Creatinine Ratio 25.7 (6-22); Blood Urea Nitrogen 36 mg/dL (9-20); Calcium 8.6 mg/dL (8.4-10.2); Carbon Dioxide 22 mmol/L (22-32); Chloride 104 mmol/L (98-107); Glucose 186 mg/dL (80-110); HEMOLYSIS < 15 (0-50); Potassium 4.7 mmol/L (3.4-5.1); Sodium 133 mmol/L (137-145)
[2019-12-25 03:54] LABS: Procalcitonin 12.17 ng/mL (<0.5)
[2019-12-25 06:46] LABS: Enterococcus species Not Detected (Not Detect); Listeria monocytogenes Not Detected (Not Detect); Methicillin-resistant gene Not Detected (Not Detect); Staphylococcus species Not Detected (Not Detect)
[2019-12-25 06:47] LABS: Acinetobacter baumannii Not Detected (Not Detect); Streptococcus agalactiae (Gr B Not Detected (Not Detect); Streptococcus pneumonia Not Detected (Not Detect); Streptococcus pyogenes (Gr A) Not Detected (Not Detect); Streptococcus species Not Detected (Not Detect)
[2019-12-25 06:49] LABS: Candida albicans Not Detected (Not Detect); Candida glabrata Not Detected (Not Detect); Candida krusei Not Detected (Not Detect); Candida parapsilosis Not Detected (Not Detect); Candida tropicalis Not Detected (Not Detect); E. coli Not Detected (Not Detect); Enterobacter cloacae complex Not Detected (Not Detect); Enterobacteriaceae species Detected (Not Detect); Haemophilus influenzae Not Detected (Not Detect); KPC (carbapenem-resist gene) Not Detected (Not Detect); Neisseria meningitidis Not Detected (Not Detect); Proteus species Not Detected (Not Detect); Pseudomonas aeruginosa Not Detected (Not Detect); Serratia marcescens Not Detected (Not Detect)
[2019-12-25 07:19] LABS: Neutrophils Absolute Manual 2808 /uL (3000-5900); Total Cells Counted 100
[2019-12-25 07:20] LABS: Platelet Estimate Decreased on smear
[2019-12-25] MEDS: MEROPENEM 1 GM/50 ML PIGGYBACK IV ×3 (08:28→22:56)
[2019-12-25] MEDS: FLUCONAZOLE 100 MG TABLET PO (08:29)
[2019-12-25] MEDS: SPIRONOLACTONE 50 MG TABLET 100 MG PO (08:29)
[2019-12-25] MEDS: FUROSEMIDE 40 MG TABLET PO (08:29)
[2019-12-25] MEDS: SODIUM CHLORIDE 0.9% FLUSH 10 ML IV ×2 (08:32→20:43)
--- NOTE | 2019-12-25 15:18 | CM.DANOTE ---
DCP Assessment: EMR reviewed: Patient is a 64 yr old male who was admitted to for Sepsis. Patients PCP is unknown but states he has one at [facility]. CM/RN met with patient and patients mother at the bedside and explained role. Patient was alert and oriented x3 during CM visit. Patient currently lives alone in a ground floor studio apartment . 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 patient and CM discussed SNF options and he determined he does not want to go to a SNF and would like HH if he needs assistance at home. CM/RN attempted to contact patients daughter Carla at [phone] at patients request and left her a message. Pending PT and OT evaluations to determine D/C needs. Patient would like [facility] and needs a face to face signed. I: Medicare and medicaid Plan: D/C home with [facility] and family support. need face to face signed. Clinicals faxed to [facility] to review. Cynthia Nieto RN Discharge Planning/Care Management CM Discharge Assessment Start: 12/25/19 15:15 Freq: Status: Active Protocol: Document 12/25/19 15:16 HS (Rec: 12/25/19 15:18 HS [id number]) Discharge Planning Assessment Assigned Claim Approver Cynthia Nieto Rn DPOA/Assigned Designee Name Virgilio Sebastian (mom) Contact Information [phone] Advance Directives? Yes History Provided By Patient,Family Member Has Patient been admitted in last 30 No days? Prior Living Arrangements House Household Members family Type of transporation used prior to Relies on Others admit Independent with ADL's Yes Is patient alert and oriented? Yes Caregiver for Another No DME Already Rented / Owned Bath Bench,Elevated Toilet Seat,FWW / Walker,Cane Patient/Family Preference Home with Home Health Comment Patients preferrence is [facility] Discharge Plan Home with Home Health Referrals Initiated Home Health If patient plan is home with home health No: need face to face signed : Has signed face to face form been completed? Medicare Choice List Provided Yes SNF/HH Preference [facility] Contact Name/ Whiteboard Updated in Patient Room with Yes name and ext. # of Claim Approver Review Status In Process Next Review Type Continued Stay Review
--- NOTE | 2019-12-25 18:45 | PM.PN.1 ---
Subjective Subjective Date Patient Seen: 12/25/19 Interval history: Patient is definitely feeling stronger, taking p.o. well, fevers resolving. Exam Vital Signs (past 8 hours): - 12/25/19 11:18 12/25/19 16:44 12/25/19 17:27 Temperature 97.6 F 97.4 F L Pulse Rate 88 95 H Respiratory Rate 16 16 Blood Pressure 100/62 103/67 Pulse Oximetry 99 97 96 Oxygen Delivery Method Room Air Oxygen Flow Rate 0 Narrative Exam Narrative: General: Alert and in no acute distress Lungs: Clear to auscultation Heart: Regular rhythm Abdomen: Soft nontender Extremities: No edema Neurological: Not confused, nonfocal Objective Labs Result Diagrams: 12/25/19 02:45 12/25/19 02:45 Labs: Laboratory Results - last 24 hr 12/24/19 12/24/19 12/25/19 15:28 16:34 00:30 WBC RBC Hgb Hct MCV MCH MCHC RDW Plt Count Neut % (Auto) Lymph % (Auto) [place] % (Auto) Eos % (Auto) Baso % (Auto) Lymph # (Auto) [place] # (Auto) Baso # (Auto) Total Counted Seg Neutrophils % Band Neutrophils % Lymphocytes % (Manual) Atypical Lymphs % Monocytes % (Manual) Neutrophils # (Manual) Platelet Estimate RBC Morphology Sodium 133 L Potassium 4.6 Chloride 104 Carbon Dioxide 22 BUN 36 H Creatinine 1.40 H Estimated GFR 51.0 L BUN/Creatinine Ratio 25.7 H Glucose 188 H Lactate Calcium 8.5 Total Bilirubin 3.1 H AST 109 H ALT 46 Alkaline Phosphatase 160 H Total Protein 7.4 Albumin 2.4 L Globulin 5.0 H Albumin/Globulin Ratio 0.5 L Procalcitonin A. baumannii (PCR) Not detected Chlamy pneumoniae PCR Not detected Adenovirus (PCR) Not detected B.parapertussis DNA PCR Not detected Rosie albicans (PCR) Not detected C. glabrata (PCR) Not detected C. krusei (PCR) Not detected C. parapsilosis (PCR) Not detected C. tropicalis (PCR) Not detected Coronavirus OC43 (PCR) Not detected Coronavirus HKU1 (PCR) Not detected Coronavirus 229E (PCR) Not detected Coronavirus NL63 (PCR) Not detected Enterobacteriac sp PCR Detected H E. cloacae complex PCR Not detected Enterococcus sp PCR Not detected E. coli (PCR) Not detected H. influenzae (PCR) Not detected Human Metapneumovir PCR Not detected Influenza Type A (PCR) Not detected Influenza Type B (PCR) Not detected Klebsiella oxytoca PCR Not detected Klebsiella pneumoniae Not detected List. monocytogenes PCR Not detected M. pneumoniae (PCR) Not detected N. meningitidis (PCR) Not detected Parainfluenza 1 (PCR) Not detected Parainfluenza 2 (PCR) Not detected Parainfluenza 3 (PCR) Not detected Parainfluenza 4 (PCR) Not detected Proteus species (PCR) Not detected RSV (PCR) Not detected Entero/Rhino (PCR) Not detected Serratia marcescens PCR Not detected Staphylococcus sp PCR Not detected Staph aureus (PCR) Not detected mecA-Methicil Res Gene Not detected Streptococcus sp PCR Not detected Group A Strep (PCR) Not detected Strep agalactiae (PCR) Not detected Strep pneumoniae (PCR) Not detected P. aeruginosa (PCR) Not detected Anna/B-Vanco Res Genes Not Reportable KPC-Carbap Res Gene PCR Not detected 12/25/19 12/25/19 12/25/19 00:30 02:45 02:45 WBC 3.6 L D RBC 3.19 L Hgb 11.0 L Hct 31.7 L MCV 99.3 MCH 34.5 H MCHC 34.7 RDW 16.1 H Plt Count 43 L Neut % (Auto) Not Reportable Lymph % (Auto) Not Reportable [place] % (Auto) Not Reportable Eos % (Auto) Not Reportable Baso % (Auto) Not Reportable Lymph # (Auto) Not Reportable [place] # (Auto) Not Reportable Baso # (Auto) Not Reportable Total Counted 100 Seg Neutrophils % 76.0 H Band Neutrophils % 2.0 L Lymphocytes % (Manual) 15.0 L Atypical Lymphs % 2.0 H Monocytes % (Manual) 5.0 Neutrophils # (Manual) 2808 L Platelet Estimate Decreased on smear RBC Morphology Not Reportable Sodium Potassium Chloride Carbon Dioxide BUN Creatinine Estimated GFR BUN/Creatinine Ratio Glucose Lactate 2.6 H Calcium Total Bilirubin AST ALT Alkaline Phosphatase Total Protein Albumin Globulin Albumin/Globulin Ratio Procalcitonin 12.17 H A. baumannii (PCR) Chlamy pneumoniae PCR Adenovirus (PCR) B.parapertussis DNA PCR Rosie albicans (PCR) C. glabrata (PCR) C. krusei (PCR) C. parapsilosis (PCR) C. tropicalis (PCR) Coronavirus OC43 (PCR) Coronavirus HKU1 (PCR) Coronavirus 229E (PCR) Coronavirus NL63 (PCR) Enterobacteriac sp PCR E. cloacae complex PCR Enterococcus sp PCR E. coli (PCR) H. influenzae (PCR) Human Metapneumovir PCR Influenza Type A (PCR) Influenza Type B (PCR) Klebsiella oxytoca PCR Klebsiella pneumoniae List. monocytogenes PCR M. pneumoniae (PCR) N. meningitidis (PCR) Parainfluenza 1 (PCR) Parainfluenza 2 (PCR) Parainfluenza 3 (PCR) Parainfluenza 4 (PCR) Proteus species (PCR) RSV (PCR) Entero/Rhino (PCR) Serratia marcescens PCR Staphylococcus sp PCR Staph aureus (PCR) mecA-Methicil Res Gene Streptococcus sp PCR Group A Strep (PCR) Strep agalactiae (PCR) Strep pneumoniae (PCR) P. aeruginosa (PCR) Anna/B-Vanco Res Genes KPC-Carbap Res Gene PCR 12/25/19 12/25/19 02:45 02:45 WBC RBC Hgb Hct MCV MCH MCHC RDW Plt Count Neut % (Auto) Lymph % (Auto) [place] % (Auto) Eos % (Auto) Baso % (Auto) Lymph # (Auto) [place] # (Auto) Baso # (Auto) Total Counted Seg Neutrophils % Band Neutrophils % Lymphocytes % (Manual) Atypical Lymphs % Monocytes % (Manual) Neutrophils # (Manual) Platelet Estimate RBC Morphology Sodium 133 L Potassium 4.7 Chloride 104 Carbon Dioxide 22 BUN 36 H Creatinine 1.40 H Estimated GFR 51.0 L BUN/Creatinine Ratio 25.7 H Glucose 186 H Lactate 2.8 H Calcium 8.6 Total Bilirubin AST ALT Alkaline Phosphatase Total Protein Albumin Globulin Albumin/Globulin Ratio Procalcitonin A. baumannii (PCR) Chlamy pneumoniae PCR Adenovirus (PCR) B.parapertussis DNA PCR Rosie albicans (PCR) C. glabrata (PCR) C. krusei (PCR) C. parapsilosis (PCR) C. tropicalis (PCR) Coronavirus OC43 (PCR) Coronavirus HKU1 (PCR) Coronavirus 229E (PCR) Coronavirus NL63 (PCR) Enterobacteriac sp PCR E. cloacae complex PCR Enterococcus sp PCR E. coli (PCR) H. influenzae (PCR) Human Metapneumovir PCR Influenza Type A (PCR) Influenza Type B (PCR) Klebsiella oxytoca PCR Klebsiella pneumoniae List. monocytogenes PCR M. pneumoniae (PCR) N. meningitidis (PCR) Parainfluenza 1 (PCR) Parainfluenza 2 (PCR) Parainfluenza 3 (PCR) Parainfluenza 4 (PCR) Proteus species (PCR) RSV (PCR) Entero/Rhino (PCR) Serratia marcescens PCR Staphylococcus sp PCR Staph aureus (PCR) mecA-Methicil Res Gene Streptococcus sp PCR Group A Strep (PCR) Strep agalactiae (PCR) Strep pneumoniae (PCR) P. aeruginosa (PCR) Anna/B-Vanco Res Genes KPC-Carbap Res Gene PCR Assessment & Plan Assessment & Plan narrative: 1. Sepsis with acute organ dysfunction (encephalopathy), without septic shock, present on admission active - blood culture positive for Enterobacter, sensitivities pending - altered mental status, tachycardia, tachypnea, and elevated lactate; not hypotensive -responding to fluid resuscitation and antibiotic management -DC IV fluids 2. Enterobacter bacteremia, present on admission - source is not entirely clear, ascites not seen on POCUS, chest x-ray not indicative of pneumonia, UA negative -continue meropenem 1 g IV q.8 hours pending sensitivities 3. Pancytopenia, chronic condition, present on admission, active - chronic in the setting of end-stage liver disease - more pronounced leukopenia in setting of acute illness 4. Acute metabolic encephalopathy, present on admission, active / resolved - resolved after IV hydration - ammonia level 18 - continue lactulose for prevention of hepatic encephalopathy, goal of 2-3 BMs daily 5. CKD III, chronic condition, present on admission, active - Cr 1.4, appears to be at baseline, stable 6. ESLD / Cirrhosis, chronic condition, present on admission, active - MELD Score of 23 - w/complications of pancytopenia, hepatic encephalopathy - continue lactulose, furosemide, and spironolactone - obtain health records from [facility] 7. HIV, chronic condition, present on admission, active - not on any anti-retroviral therapy DNR. Misa has a POLST form. States his daughter the designated surrogate decision maker. Home medications reviewed and reconciled accordingly VTE prophylaxis w/ SCDs only (no heparin, lovenox d/t thrombocytopenia) Quality VTE Deep Vein Thrombosis/Pulmonary Embolism Present on Admission: No
[2019-12-26] VITALS (9 sets, daily range): BP systolic 100–109; BP diastolic 47–67; PULSE 89–104; RESP 16–20; TEMP 36.3–38; O2SAT 94–98
[2019-12-26] MEDS: SODIUM CHLORIDE 0.9% FLUSH 10 ML IV ×3 (06:33→21:01)
[2019-12-26] MEDS: MEROPENEM 1 GM/50 ML PIGGYBACK IV ×3 (06:33→22:24)
[2019-12-26] MEDS: LACTULOSE 20 GM/30 ML SOLUTION 10 GM PO (09:36)
[2019-12-26] MEDS: FUROSEMIDE 40 MG TABLET PO (09:36)
[2019-12-26] MEDS: FLUCONAZOLE 100 MG TABLET PO (09:36)
[2019-12-26] MEDS: SPIRONOLACTONE 50 MG TABLET 100 MG PO (09:36)
--- NOTE | 2019-12-26 11:25 | PM.PN.1 ---
Subjective Subjective Date Patient Seen: 12/26/19 Interval history: Patient endorses continued improvement in strength and general feeling. He is on meropenem for Enterobacter bacteremia which sensitivities are pending. Exam Vital Signs (past 8 hours): - 12/26/19 04:25 12/26/19 09:00 Temperature 98.4 F 97.3 F L Pulse Rate 89 99 H Respiratory Rate 18 18 Blood Pressure 102/62 105/62 Pulse Oximetry 98 95 Oxygen Delivery Method Room Air Oxygen Flow Rate 0 Narrative Exam Narrative: General: Alert and in no acute distress Lungs: Clear to auscultation Heart: Regular rhythm Abdomen: Soft nontender Extremities: No edema Neurological: Not confused, nonfocal Objective Labs Result Diagrams: 12/25/19 02:45 12/25/19 02:45 Assessment & Plan Assessment & Plan narrative: 1. Sepsis with acute organ dysfunction (encephalopathy), without septic shock, present on admission active - blood culture positive for Enterobacter, sensitivities pending -presented with altered mental status, tachycardia, tachypnea, and elevated lactate; not hypotensive -responded to fluid resuscitation (now completed) and antibiotic management 2. Enterobacter bacteremia, present on admission - source is not entirely clear, ascites not seen on POCUS, chest x-ray not indicative of pneumonia, UA negative -continue meropenem 1 g IV q.8 hours pending sensitivities 3. Pancytopenia, chronic condition, present on admission, active, stable - chronic in the setting of end-stage liver disease - more pronounced leukopenia in setting of acute illness 4. Acute metabolic encephalopathy, present on admission, active / resolved - resolved after IV hydration - ammonia level 18 - continue lactulose for prevention of hepatic encephalopathy, goal of 2-3 BMs daily 5. CKD III, chronic condition, present on admission, active - Cr 1.4, appears to be at baseline, stable 6. ESLD / Cirrhosis, chronic condition, present on admission, active - MELD Score of 23 - w/complications of pancytopenia, hepatic encephalopathy - continue lactulose, furosemide, and spironolactone 7. HIV, chronic condition, present on admission, active - not on any anti-retroviral therapy 8. Hospital insomnia -zolpidem 5 mg HS as needed ordered DNR. Patient has a POLST form. States his daughter the designated surrogate decision maker. Home medications reviewed and reconciled accordingly VTE prophylaxis w/ SCDs only (no heparin, lovenox d/t thrombocytopenia) Quality VTE Deep Vein Thrombosis/Pulmonary Embolism Present on Admission: No
[2019-12-27] VITALS (10 sets, daily range): BP systolic 86–132; BP diastolic 60–75; PULSE 97–108; RESP 16–19; TEMP 36.3–37; O2SAT 94–97
[2019-12-27] MEDS: ZOLPIDEM 5 MG TABLET PO (00:04)
--- NOTE | 2019-12-27 02:09 | PC.NURSE ---
Patient seen and assessed at 0010. Is alert and oriented. Breath sounds diminished but CTA; RA sat 94%. HRR with murmur. Denies nausea. BT present and abdomen is soft but appears mildly distended. Is incontinent of urine. Able to turn in bed but states it is difficult to do so. Does have decreased ROM in right shoulder which he states is due to osteoarthritis. Perineum is reddened but without open areas. States he has tingling in bilateral feet. Bruising noted on bilateral UE. Denies pain. CBG checked and was 95. Fall risk score is high and bed alarm is activated.
[2019-12-27] MEDS: MEROPENEM 1 GM/50 ML PIGGYBACK IV (06:17)
[2019-12-27] MEDS: LACTULOSE 20 GM/30 ML SOLUTION 10 GM PO ×2 (07:56→20:10)
[2019-12-27] MEDS: FLUCONAZOLE 100 MG TABLET PO (07:57)
[2019-12-27] MEDS: SODIUM CHLORIDE 0.9% FLUSH 10 ML IV ×2 (07:58→20:12)
--- NOTE | 2019-12-27 09:29 | PC.NURSE ---
Patient states he does not check his blood sugars normally at home, and doesn't want them checked. Verified with Dr. Patel, and he states it is ok to dc blood glucose checks.
[2019-12-27] MEDS: SPIRONOLACTONE 50 MG TABLET PO (10:23)
[2019-12-27] MEDS: FUROSEMIDE 40 MG TABLET 20 MG PO (10:23)
--- NOTE | 2019-12-27 12:17 | PM.DS.1 ---
History of Present Illness History of Present Illness Date Patient Seen: 12/29/19 Time Patient Seen: 08:27 Chief complaint: late state liver CA, chills, tremers, weak Narrative: As per DARLINE Rizvi: Patient is a 64-year-old male with complex past medical history. Patient is unable to give a clear account of his medical history and current medical record also lacks details. Patient reports PMH of CAD, DM 2T (not on insulin, off oral antiglcyemics x6 months), hepatitis C, hepatic encephalopathy, ESLD / cirrhosis, HIV Patient reports developing sudden onset of rigors. Symptom onset was sudden, hours prior to ED presentation. Associated symptoms include encephalopathy, generalized weakness, nausea and vomiting (x2 episodes). Patient denies recent travel or exposure to ill contacts. He is immunocompromised. Denies cough and symptoms of upper respiratory illness. Denies headache, chest pain, palpitations, dizziness, lightheadedness, abdominal pain, dysuria, or new rash. Prior to ED presentation patient has been feeling well. He was on hospice, but was taken of due to stable overall health status. At home patient is on lactulose, furosemide, and spironolactone. Patient has been following with multiple specialists in [facility] for his underlying illness; however, states that in the past several months he has been establishing himself with different providers and all of his records are in the process of being transferred to [facility]. Discharge Providers Provider Date of admission: 12/24/19 17:18 Discharge Date: 12/29/19 Consults: 12/24/19 15:44 Consult to [employer] - Rn Perinatal Stat Comment: [employer] Consult: End of Life/Goal Care Dis Discharge provider: Raffaele Patel DO Summary Hospital Course Discharge Diagnosis: Please see below for hospital course by problem. Hospital Course: 64-year-old male with complex past medical history of CAD, DM 2T (not on insulin, off oral antiglcyemics x6 months), hepatitis C, hepatic encephalopathy, ESLD / cirrhosis, HIV who was admitted for sepsis due to Klebsiella bacteremia. He is now improved and is discharging to SNF rehab. 1. Sepsis with acute organ dysfunction (encephalopathy), without septic shock, present on admission active - blood culture positive for Klebsiella, transition to cefuroxime to complete 14 day total course. (last date of antibiotics to be 01/07/2020) -presented with altered mental status, tachycardia, tachypnea, and elevated lactate; not hypotensive -responded to fluid resuscitation (now completed) and antibiotic management, initially with meropenem which was narrowed to cefuroxime as noted above. 2. Klebsiella bacteremia, present on admission - source is not entirely clear, ascites not seen on POCUS, chest x-ray not indicative of pneumonia, UA negative but taken after antibiotics were given. -patient was continued on meropenem until culture results finalize, he is currently on oral cefuroxime. He should complete a 14 day total course. (last date of antibiotics to be 01/07/2020) 3. Pancytopenia, chronic condition, present on admission, active, stable - chronic in the setting of end-stage liver disease - more pronounced leukopenia in setting of acute illness 4. Acute metabolic encephalopathy, present on admission, active / resolved - resolved after IV hydration - ammonia level 18 - continue lactulose for prevention of hepatic encephalopathy, goal of 2-3 BMs daily 5. CKD III, chronic condition, present on admission, active - Cr 1.4, appears to be at baseline, stable 6. ESLD / Cirrhosis, chronic condition, present on admission, active - MELD Score of 23 based on admission labs - w/complications of pancytopenia, hepatic encephalopathy - continue lactulose, furosemide, and spironolactone 7. HIV, chronic condition, present on admission, active - not on any anti-retroviral therapy, if patient does not want hospice, reconsider antiretroviral therapy as an outpatient 8. Hospital insomnia -zolpidem 5 mg HS as needed ordered DNR. Patient has a POLST form. States his daughter the designated surrogate decision maker. Dispo: Transfer to SNF rehab. Status at Discharge Overall status at discharge: patient is progressing back to baseline Time Spent with Patient Time spent: Greater than 30 minutes Exam Vital Signs (past 8 hours): - 12/27/19 07:50 12/27/19 08:11 Temperature 97.3 F L Pulse Rate 101 H 99 H Respiratory Rate 16 Blood Pressure 86/62 L 95/70 Pulse Oximetry 94 Oxygen Delivery Method Room Air Oxygen Flow Rate 0 Narrative Exam Narrative: GENERAL APPEARANCE: Chronically ill-appearing, but relatively well in appearance, in no acute distress. SKIN: Inspection of the skin reveals no rashes, ulcerations or petechiae. HEENT: The sclerae were anicteric and conjunctivae were pink and moist. Extraocular movements were intact and pupils were equal, round with normal accommodation. External inspection of the ears and nose showed no scars, lesions, or masses. Lips, teeth, and gums showed normal mucosa. The oral mucosa, hard and soft palate, tongue and posterior pharynx were unremarkable. NECK: Supple and symmetric. There was no thyroid enlargement, and no tenderness, or masses were felt. CHEST: Normal AP diameter and normal contour without any kyphoscoliosis. LUNGS: Auscultation of the lungs revealed no wheezes, rhonchi, or rales. CARDIOVASCULAR: There was a regular rate and rhythm without any murmurs, gallops, rubs. Peripheral pulses were 2+ and symmetric. ABDOMEN: Soft and nontender with normal bowel sounds. No ascites was noted. MUSCULOSKELETAL: There was no tenderness or effusions noted. Muscle strength and tone were normal. EXTREMITIES: No cyanosis, clubbing or edema. NEUROLOGIC: Alert and oriented. Normal affect. Globally weak. Objective Labs Result Diagrams: 12/25/19 02:45 12/25/19 02:45 Discharge Plan Discharge Plan Patient Disposition: SNF Transfer to: [facility] Discharge comment: You were admitted to the hospital with an infection in your blood. Culture grew a bacterial called Klebsiella. It is unclear exactly how the bacteria did got into your blood. You received appropriate antibiotics while here, and continue to improve. You/re being discharged to complete 11 additional days of antibiotics. Please follow-up with a primary care provider within the next 2 weeks to see how you are doing. Discharge orders & Medications Prescriptions: New cefuroxime axetil 500 mg tablet 500 mg PO BID 11 Days Qty: 22 RF: 0 Continued furosemide 40 mg tablet 40 mg PO DAILY RF: 0 fluconazole 100 mg tablet 100 mg PO DAILY RF: 0 spironolactone 100 mg tablet 100 mg PO DAILY RF: 0 lactulose 10 gram/15 mL solution 10 ml PO TID RF: 0 Discharge Health Status Health Concerns: Klebsiella bacteremia Diet/Activity/Treatments Diet: Diet as Tolerated and Low-sodium Activity: As tolerated Visit Report/Discharge Packet Instructions: How to Prevent Falls, DI for Sepsis -- Adult, Cefuroxime Quality VTE Deep Vein Thrombosis/Pulmonary Embolism Present on Admission: No
--- NOTE | 2019-12-27 14:09 | CM.DPC ---
Addendum entered by Cynthia Edgar R.N. 12/27/19 14:47: Risa/Juancho Called and spoke to patients BEN supportive employment case manager Kemal at [phone] and let him know patient was D/c home today with HH services. Kemal stated understanding and will follow up with patient. Cynthia Edgar RN Original Note: DCP continues: met with patient at the bedside and confirmed patient wanted to D/c with HH. Patient stated yes and would like to use [facility]. RISA/Rn faxed clinicals and signed F2F for their review. Risa/ JUANCHO will fax over D/C summary when MD signs D/C summary. D/C order placed by provider and TRAVIS updated patient of D/C Plan Cynthia Edgar RN
--- NOTE | 2019-12-27 15:36 | PC.NURSE ---
Patient up in chair, dressed and waiting for the arrival of his family for fruit or nut picker. Discharge to home with family, and home health per social work. Patient instructed to continue his antibiotics as prescribed and e-filed into pharmacy [facility] [place], reviewed with patient and instructed to have his family fruit or nut picker and start tonight. Patient instructed to ensure follow up appointment within 2 weeks with his PCP. Patient requests nurse to review all instructions with his family when they are here to pick him up. Even shift RN notified of this and she will also remove IV prior to discharge. call light within reach.
--- NOTE | 2019-12-27 16:49 | PM.PN.1 ---
Subjective Subjective Date Patient Seen: 12/27/19 Time Patient Seen: 08:45 Interval history: 64-year-old male with PMH of CAD, DM 2T (not on insulin, off oral antiglcyemics x6 months), hepatitis C, hepatic encephalopathy, ESLD / cirrhosis, HIV (not on ARV tx) who was admitted for sepsis and is seen for follow-up today. He was previously refusing rehab, and was actually discharged with a plan for home with home health. However when his mother came to pick him up he could not ambulate very well, and she was able to get him to agree to go to rehab if it is recommended by physical therapy. He will now get a physical therapy evaluation. He continues to gain strength and feels quite well today, denying complaints but remains globally weak. His cultures today finalized to Klebsiella which is sensitive to oral cephalexin. He will complete a total 14 day course, and he was narrowed to cefuroxime today. Exam Vital Signs (past 8 hours): Oxygen Delivery Method Room Air Oxygen Flow Rate 0 Narrative Exam Narrative: GENERAL APPEARANCE: Chronically ill-appearing, but Well developed, well nourished, in no acute distress. SKIN: Inspection of the skin reveals no rashes, ulcerations or petechiae. HEENT: The sclerae were anicteric and conjunctivae were pink and moist. Extraocular movements were intact and pupils were equal, round with normal accommodation. External inspection of the ears and nose showed no scars, lesions, or masses. Lips, teeth, and gums showed normal mucosa. The oral mucosa, hard and soft palate, tongue and posterior pharynx were unremarkable. NECK: Supple and symmetric. There was no thyroid enlargement, and no tenderness, or masses were felt. CHEST: Normal AP diameter and normal contour without any kyphoscoliosis. LUNGS: Auscultation of the lungs revealed no wheezes, rhonchi, or rales. CARDIOVASCULAR: There was a regular rate and rhythm without any murmurs, gallops, rubs. Peripheral pulses were 2+ and symmetric. ABDOMEN: Soft and nontender with normal bowel sounds. No ascites was noted. MUSCULOSKELETAL: There was no tenderness or effusions noted. Muscle strength and tone were normal. EXTREMITIES: No cyanosis, clubbing or edema. NEUROLOGIC: Alert and oriented. Normal affect. Globally weak. Objective Labs Result Diagrams: 12/25/19 02:45 12/25/19 02:45 Assessment & Plan Assessment & Plan narrative: 64-year-old male with complex past medical history. Patient is unable to give a clear account of his medical history and current medical record also lacks details. Patient reports PMH of CAD, DM 2T (not on insulin, off oral antiglcyemics x6 months), hepatitis C, hepatic encephalopathy, ESLD / cirrhosis, HIV 1. Sepsis with acute organ dysfunction (encephalopathy), without septic shock, present on admission active - blood culture positive for Klebsiella, transition to cefuroxime starting this evening. -presented with altered mental status, tachycardia, tachypnea, and elevated lactate; not hypotensive -responded to fluid resuscitation (now completed) and antibiotic management 2. Klebsiella bacteremia, present on admission - source is not entirely clear, ascites not seen on POCUS, chest x-ray not indicative of pneumonia, UA negative but taken after antibiotics were given. -patient was continued on meropenem until culture results finalize, he is currently on oral cefuroxime. He should complete a 14 day total course. 3. Pancytopenia, chronic condition, present on admission, active, stable - chronic in the setting of end-stage liver disease - more pronounced leukopenia in setting of acute illness 4. Acute metabolic encephalopathy, present on admission, active / resolved - resolved after IV hydration - ammonia level 18 - continue lactulose for prevention of hepatic encephalopathy, goal of 2-3 BMs daily 5. CKD III, chronic condition, present on admission, active - Cr 1.4, appears to be at baseline, stable 6. ESLD / Cirrhosis, chronic condition, present on admission, active - MELD Score of 23 - w/complications of pancytopenia, hepatic encephalopathy - continue lactulose, furosemide, and spironolactone 7. HIV, chronic condition, present on admission, active - not on any anti-retroviral therapy, if patient does not want hospice therapy should reconsider antiretroviral therapy as an outpatient 8. Hospital insomnia -zolpidem 5 mg HS as needed ordered DNR. Patient has a POLST form. States his daughter the designated surrogate decision maker. Home medications reviewed and reconciled accordingly VTE prophylaxis w/ SCDs only (no heparin, lovenox d/t thrombocytopenia) Dispo: Will need PT evaluation given patient is agreeable to potential rehab placement. Will obtain this tomorrow and start to work on possible rehab if he indeed requires this. Quality VTE Deep Vein Thrombosis/Pulmonary Embolism Present on Admission: No
--- NOTE | 2019-12-27 17:15 | PC.NURSE ---
Addendum entered by Carla Junior R.N. 12/27/19 21:37: Pt did agree to go to rehab facility, Possible placement in rehab facility tomorrow. Addendum entered by Carla Junior R.N. 12/27/19 21:22: Pt resting quietly throughout evening. HL intact/patent. Denies any discomfort at this time. Call light w/in reach, bed alarm on for pt safety. Continue w/plan of care. Original Note: Pt and mother declining discharge home at this time. Pt states he has not had PT and is very weak. Pt lives alone. Unable to stand w/two assist currently. Dr. Patel and Care management aware. HL RFA intact/patent,. CBG AC = 144, no coverage required. Call light w/in reach, bed alarm on for pt safety.
[2019-12-27] MEDS: cefUROXime 250 MG TABLET 500 MG PO (20:10)
--- NOTE | 2019-12-27 21:49 | PC.NURSE ---
Patients blood sugar at AC was 144 and 102 at HS
[2019-12-28] VITALS (10 sets, daily range): BP systolic 97–102; BP diastolic 54–70; PULSE 91–100; RESP 15–17; TEMP 36.4–36.9; O2SAT 94–97
--- NOTE | 2019-12-28 09:22 | CM.DPC ---
Addendum entered by Cynthia Edgar R.N. 12/28/19 15:23: DCP Continued: Received phone call from [facility] that they accept patient. [employer] transport arranged to supervisor opening and picking patient tomorrow 12/29/2019 at 10:00am. Patient and family updated as well as care team. PASSR completed. Original Note: DCP Continued: CM/RN met with patient at the bedside to discuss D/c plan. Patient was originally scheduled for d/c yesterday 12/27/2019 but patient is having ambulation issues and will need to have PT evaluation today to determine if patient will need SNF. CM/Rn spoke to patient about SNF option and patient was more receptive to SNF option today and stated he does not want to go to [facility] or [facility] but is open to [facility] or [facility]. CM/Rn will contact those facilities and fax over clinicals for them to review. Cynthia Edgar RN
[2019-12-28] MEDS: FUROSEMIDE 40 MG TABLET 20 MG PO (09:33)
[2019-12-28] MEDS: LACTULOSE 20 GM/30 ML SOLUTION 10 GM PO (09:35)
[2019-12-28] MEDS: cefUROXime 250 MG TABLET 500 MG PO ×2 (09:43→20:27)
[2019-12-28] MEDS: SODIUM CHLORIDE 0.9% FLUSH 10 ML IV ×2 (09:43→20:28)
[2019-12-28] MEDS: SPIRONOLACTONE 50 MG TABLET PO (09:50)
[2019-12-28] MEDS: FLUCONAZOLE 100 MG TABLET PO (09:50)
--- NOTE | 2019-12-28 11:20 | PT.IIE ---
Current Diagnoses Sepsis, unspecified organism (12/24/19) Medical History (Last Reviewed 12/24/19 @ 23:57 by DARLINE Rizvi) Coronary artery disease (Acute) Diabetes (Acute) End stage liver disease (Acute) Hepatic encephalopathy (Acute) Hepatitis-C (Acute) HIV (human immunodeficiency virus infection) (Acute) Physical Therapy Inpatient Evaluation/Re-Eval M1 PT/OT-IP Prior Functional Status Start: 12/28/19 11:52 Freq: NEEDED Status: Active Protocol: Document 12/28/19 11:20 AB (Rec: 12/28/19 12:13 AB [id number]) Medical Review Prior Functional Status Medical History Reviewed Yes Communication able to make needs known Mobility and Gait pt stated that he is modified independent with all mobilities and ambulation using 4WW but with h/o falls. Social History Household Members none Living Arrangements Apartment/Condo Number of Floors (Floors) One Floor Number of Stairs To Enter/Railing? stated no steps to enter but has an incline to get into the sidewalk and into the apartment Home Environment Standard Height Toilet,Tub/ Shower Home Equipment Four Wheel Walker,Shower Seat with Backrest,Hand Held Shower ,Grab Bars In Shower Additional Social History Comment has a standard walker; L side bed cane has a caregiver that comes in on the weekdays from 4 pm to 8 pm. stated that his daughter comes in ~ once a week to check on him pt stated that he has been using a bedside commode for toileting since he does not have enough time to walk to the toilet if he needs to go. M2 PT-IP Current Condition Start: 12/28/19 11:52 Freq: NEEDED Status: Active Protocol: Document 12/28/19 11:20 AB (Rec: 12/28/19 12:13 AB [id number]) Physical Therapy Current Condition Current Condition Evaluation Date 12/28/19 Treatment Diagnosis sepsis; difficulty in walking Onset Date 12/24/2019 Precautions Other Precautions falls; HIV M3 PT-IP Subjective Start: 12/28/19 11:52 Freq: NEEDED Status: Active Protocol: Document 12/28/19 11:20 AB (Rec: 12/28/19 12:13 AB [id number]) Subjective Physical Therapy Visit Type Type Initial Evaluation Visit Start Time 11:20 Visit Stop Time 11:46 Total Visit Minutes 26 Number of NUTRITION INSTRUCTOR Visits 0 Physical Therapy Visit Comments Patient Comments pt agreeable to do PT Therapy Pain Assessment Pain Present Pain Present Denied Pain M4 PT-IP Mobility and Gait Start: 12/28/19 11:52 Freq: NEEDED Status: Active Protocol: Document 12/28/19 11:20 AB (Rec: 12/28/19 12:13 AB [id number]) PT-Bed Mobility Assessment Rolling Type of Rolling Log Rolling Level of Assist Contact Guard Assistance,1 Person Assistance Supine to Sit Supine to Sit Maximum Assistance,1 Person Assistance,Bedrails PT-Transfer Assessment Sit to and From Stand Sit to and from Stand Minimal Assistance,1 Person Assistance,Use of Upper Extremities Equipment Transfer Assistive Device Gait Belt,Front Wheeled Walker Orthotic/Prosthetic Devices or Brace: No Transfers Transfer Destination Chair Transfer Technique ambulated using FWW Transfer Ability Level of Assist Minimal Assistance,1 Person Assistance,Use of Upper Extremities Comments Mobility Comments pt completed bed mobility supine to sit max A and max cues and pt used bed rail. pt was able to sit on EOB SBA. completed sit to stand min A and cues and was able to ambulate in room using FWW min A ~ 25 ft. pt agreed to sit up on chair. positioned on chair. call light and table placed within reach. Gait Assessment Gait Gait Assistance Required: Minimum Assistance Distance (Feet) 25 Able to Maintain Weight Bearing Status Yes During Gait Assistive Devices Assistive Device Gait Belt,Front Wheeled Walker Orthotic/Prosthetic Devices or Brace: No Gait Deviations General Gait Pattern Antalgic,Decreased Stride Length,Decreased Feet Clearance,Step-to Gait Factors Limiting Gait Function Factors Limiting Gait Function Decreased Activity Tolerance, Decreased Strength,Poor Balance,Poor Safety Awareness Comments Gait Comments pt ambulated in room min A and cues up to 25 ft. presents with antalgic shuffling gait. pt with previous R hip surgery and pt's LLE seems longer and unable to straighten L knee during standing. presents with increase antalgic shuffling gait towards end of ambulation and slower ricardo. PT-Balance Assessment Sitting Balance and Reactions Static Sitting Balance Ability Good Dynamic Sitting Balance Ability Fair Standing Balance and Reactions Static Standing Balance Ability Fair Dynamic Standing Balance Ability Poor Device Used FWW M5 PT-IP Objective Assessments Start: 12/28/19 11:52 Freq: NEEDED Status: Active Protocol: Document 12/28/19 11:20 AB (Rec: 12/28/19 12:13 AB [id number]) Orientation Orientation/Cognition Level of Alertness Alert Orientation Name,Place,Situation Safety Awareness Decreased Safety Awareness Gross Range of Motion Lower Extremity ROM Assessment Within Functional Limits Strength Lower Extremity Strength Assessment Bilaterally Impaired Comments Strength Comments RLE 3+/5 LLE 4-/5 Coordination Assessment Gross Coordination Gross Coordination WNL Sensation Assessment Sensation Gross Sensation WNL Muscle Tone Muscle Tone WNL Yes M6 PT-IP Treatment Start: 12/28/19 11:52 Freq: NEEDED Status: Active Protocol: Document 12/28/19 11:20 AB (Rec: 12/28/19 12:13 AB [id number]) Physical Therapy Treatment Education Education Provided Safety M7 PT-IP Assessment and Plan Start: 12/28/19 11:52 Freq: NEEDED Status: Active Protocol: Document 12/28/19 11:20 AB (Rec: 12/28/19 12:13 AB [id number]) PT Summary Assessment and Plan Potential Rehabilitation Potential Good Status of Condition at Evaluation Evolving Summary Impairments Strength,Balance,Coordination, Cognition,Bed Mobility, Transfers,Gait,Activity Tolerance Assessment Summary pt requiring max A with bed mobility and min A with transfers and ambulation and has decrease activity tolerance and unable to ambulate farther with increase gait deviation towards end of ambulation and slower ricardo . pt will require 24/7 assist at this time and will benefit from SNF rehab to improve strength and mobility. Goals Bed Mobility Goal Standby Assistance Transfer Goal Standby Assistance,Front Wheeled Walker Gait Goal Standby Assistance,Front Wheel Walker Gait Distance 100 Other Goals improve ambulation ~ 150 ft using 4WW SBA Days to Meet Goals 5 Frequency of Treatment Frequency Of Treatment Once a Day Treatment Plan Physical Therapy Treatment Plan Bed Mobility Training,Transfer Training,Gait Training, Therapeutic Exercise,Balance Retraining,Discharge Planning, Neuromuscular Re-ed Other Recommendations and Next Treatment bed mobility, transfers, Focus ambulation Recommendations To Nursing Amount of Assist Needed 1 Person Assist Discharge Recommendations PT Discharge Recommendations SNF Rehab Equipment Needed for Home Before FWW if going home and not safe Discharge with 4WW Transportation Needs at Discharge Wheelchair/Cabulance
--- NOTE | 2019-12-28 11:25 | PC.NURSE ---
A&O X4; Pt denies pain; LS diminished bilaterally, RA; abdomen soft, non-tender; BTs present; generalized weakness; PT ordered
--- NOTE | 2019-12-28 14:42 | P.PN_ITS ---
Subjective Subjective Date Patient Seen: 12/28/19 Time Patient Seen: 10:45 Interval history: 64-year-old male with PMH of CAD, DM 2T (not on insulin, off oral antiglcyemics x6 months), hepatitis C, hepatic encephalopathy, ESLD / cirrhosis, HIV (not on ARV tx) who was admitted for sepsis and is seen for follow-up today. He was previously refusing rehab, and was actually discharged with a plan for home with home health. However when his mother came to pick him up he could not ambulate very well, and she was able to get him to agree to go to rehab if it is recommended by physical therapy. He was seen by PT today and recommended for SNF rehab. Today he is denying complaints but remains globally weak. His cultures today finalized to Klebsiella which is sensitive to oral cephalosporins. He will complete a total 14 day total course, and he was narrowed to cefuroxime yesterday Exam Vital Signs (past 8 hours): - 12/28/19 08:00 12/28/19 10:30 Temperature 97.5 F L Pulse Rate 92 H Respiratory Rate 16 Blood Pressure 97/68 Pulse Oximetry 95 95 Oxygen Delivery Method Room Air Oxygen Flow Rate 0 Narrative Exam Narrative: GENERAL APPEARANCE: Chronically ill-appearing, but Well developed, well nourished, in no acute distress. SKIN: Inspection of the skin reveals no rashes, ulcerations or petechiae. HEENT: The sclerae were anicteric and conjunctivae were pink and moist. Extraocular movements were intact and pupils were equal, round with normal acc ommodation. External inspection of the ears and nose showed no scars, lesions, or masses. Lips, teeth, and gums showed normal mucosa. The oral mucosa, hard and soft palate, tongue and posterior pharynx were unremarkable. NECK: Supple and symmetric. There was no thyroid enlargement, and no tenderness, or masses were felt. CHEST: Normal AP diameter and normal contour without any kyphoscoliosis. LUNGS: Auscultation of the lungs revealed no wheezes, rhonchi, or rales. CARDIOVASCULAR: There was a regular rate and rhythm without any murmurs, gallops, rubs. Peripheral pulses were 2+ and symmetric. ABDOMEN: Soft and nontender with normal bowel sounds. No ascites was noted. MUSCULOSKELETAL: There was no tenderness or effusions noted. Muscle strength and tone were normal. EXTREMITIES: No cyanosis, clubbing or edema. NEUROLOGIC: Alert and oriented. Normal affect. Globally weak. Objective Labs Result Diagrams: 12/25/19 02:45 12/25/19 02:45 Labs: Laboratory Results - last 24 hr 12/24/19 15:19 Smear Path Review Assessment & Plan Assessment & Plan narrative: 64-year-old male with complex past medical history of CAD, DM 2T (not on insulin, off oral antiglcyemics x6 months), hepatitis C, hepatic encephalopathy, ESLD / cirrhosis, HIV who was admitted for sepsis due to Klebsiella bacteremia. He is now improved and is pending discharge to SNF rehab. 1. Sepsis with acute organ dysfunction (encephalopathy), without septic shock, present on admission active - blood culture positive for Klebsiella, transition to cefuroxime starting this evening. -presented with altered mental status, tachycardia, tachypnea, and elevated lactate; not hypotensive -responded to fluid resuscitation (now completed) and antibiotic management 2. Klebsiella bacteremia, present on admission - source is not entirely clear, ascites not seen on POCUS, chest x-ray not indicative of pneumonia, UA negative but taken after antibiotics were given. -patient was continued on meropenem until culture results finalize, he is currently on oral cefuroxime. He should complete a 14 day total course. 3. Pancytopenia, chronic condition, present on admission, active, stable - chronic in the setting of end-stage liver disease - more pronounced leukopenia in setting of acute illness 4. Acute metabolic encephalopathy, present on admission, active / resolved - resolved after IV hydration - ammonia level 18 - continue lactulose for prevention of hepatic encephalopathy, goal of 2-3 BMs daily 5. CKD III, chronic condition, present on admission, active - Cr 1.4, appears to be at baseline, stable 6. ESLD / Cirrhosis, chronic condition, present on admission, active - MELD Score of 23 - w/complications of pancytopenia, hepatic encephalopathy - continue lactulose, furosemide, and spironolactone 7. HIV, chronic condition, present on admission, active - not on any anti-retroviral therapy, if patient does not want hospice therapy should reconsider antiretroviral therapy as an outpatient 8. Hospital insomnia -zolpidem 5 mg HS as needed ordered DNR. Patient has a POLST form. States his daughter the designated surrogate decision maker. Home medications reviewed and reconciled accordingly VTE prophylaxis w/ SCDs only (no heparin, lovenox d/t thrombocytopenia) Dispo: Will need PT evaluation given patient is agreeable to potential rehab placement. Will obtain this tomorrow and start to work on possible rehab if he indeed requires this. Quality VTE Deep Vein Thrombosis/Pulmonary Embolism Present on Admission: No
--- NOTE | 2019-12-28 19:01 | PC.NURSE ---
Addendum entered by Carla Junior R.N. 12/28/19 21:25: Pt had uneventful evening. Denies discomfort HL intact. D/C planned for 1000 tomorrow to [facility]. Call light w/in reach, Bed alarm on for pt safety. Contnue w/plan of care. Original Note: Pt resting quietly at this time. Denies any discomfort. Lungs clear/diminished, SpO2 95% RA Inc x 1 HL RFA intact. Call light w/in rech, bed alarm on for pt safety.
[2019-12-29 02:00] VITALS: O2SAT 95
[2019-12-29 03:37] VITALS: BP 97/65; PULSE 94; RESP 15; TEMP 36.7; O2SAT 95
[2019-12-29 06:00] VITALS: O2SAT 96
[2019-12-29 07:35] VITALS: BP 99/64; PULSE 93; RESP 16; TEMP 36.4; O2SAT 97
[2019-12-29] MEDS: cefUROXime 250 MG TABLET 500 MG PO (09:13)
[2019-12-29] MEDS: FLUCONAZOLE 100 MG TABLET PO (09:13)
[2019-12-29] MEDS: FUROSEMIDE 40 MG TABLET 20 MG PO (09:13)
[2019-12-29] MEDS: SPIRONOLACTONE 50 MG TABLET PO (09:14)
--- NOTE | 2019-12-29 10:33 | CM.DPC ---
DCP SNF Discharge Per MD, pt medically stable to d/c to SNF today. RAMIN called [facility] admissions Kadie and she confirms they still plan to accept him and still have [facility] set up for 1000. RAMIN faxed JUANA, med rec signed, no MD debo orders to [facility] to review. RAMIN updated MD, RN, [employer], and pathology secretary and met bedside with pt during MD bedside rounds and pt confirms he is agreeable with d/c plan to SNF today prior to safe return home. Plan: Patient to d/c to [facility] via [facility] transport at 1000 today. NACHO Salomon
== END 2019-12-29 10:30 | DRG 975 ==
LOC: ED 16:41 → AC 17:19
PROVIDERS: Nurse Practitioner Gerontology; Admitting Provider Internal Medicine; Emergency Provider Emergency Medicine; Referring Provider Emergency Medicine; Visit Provider Internal Medicine
DX: A41.59 Other Gram-negative sepsis (principal); B20 Human immunodeficiency virus [HIV] disease; D61.818 Other pancytopenia; G93.41 Metabolic encephalopathy; B99.9 Unspecified infectious disease; R65.20 Severe sepsis without septic shock; N18.3 Chronic kidney disease, stage 3 (moderate); K72.90 Hepatic failure, unspecified without coma; K74.60 Unspecified cirrhosis of liver; E11.22 Type 2 diabetes mellitus with diabetic chronic kidney disease; R40.2362 Coma scale, best motor response, obeys commands, at arrival to emergency department; R40.2132 Coma scale, eyes open, to sound, at arrival to emergency department; R40.2242 Coma scale, best verbal response, confused conversation, at arrival to emergency department; G47.09 Other insomnia; I25.10 Atherosclerotic heart disease of native coronary artery without angina pectoris; Z66 Do not resuscitate; B96.1 Klebsiella pneumoniae [K. pneumoniae] as the cause of diseases classified elsewhere
CPT/HCPCS: 36415; 71045; 80048; 80053; 80076; 80320; 80329; 81001; 82140; 82962; 83605; 83690; 84145; 85025; 85610; 85730; 87040; 87086; 87150; 87186; 87205; 87502; 87633; 93005; 96361; 96365; 96366; 96368; 97162; 99284; 99285; G0480; J0692; J1956